=== PATIENT | female | born 1985 | race Caucasian/White ===

== ENCOUNTER 2016-03-27 06:10 | Day surgery (SDC) | payer BC ==
--- NOTE | 2016-03-26 07:45 | P.HPOB ---
History of Present Illness H&P Date: 03/26/16 Chief Complaint: Menorrhagia. This patient is a pleasant 30 yr female with long standing menorrhagia who is requesting trial of endometrial ablation for treatment. Pelvic ultrasound was unremarkable and patient is done having children ( has had a vasectomy). She does not desire hormonal treatment at this time and requests Novasure endometrial ablation. Review of Systems Constitutional: Denies chills, Denies fever Ears, nose, mouth and throat: Denies headache, Denies sore throat Cardiovascular: Denies chest pain, Denies shortness of breath Respiratory: Denies cough Gastrointestinal: Denies abdominal pain, Denies diarrhea, Denies nausea, Denies vomiting Genitourinary: Reports as per HPI Menstruation: Reports period heavy Musculoskeletal: Denies myalgias Integumentary: Denies pruritus, Denies rash Neurological: Denies numbness, Denies weakness Psychiatric: Denies anxiety, Denies depression Endocrine: Denies fatigue, Denies weight change Past Medical History Past Medical History: Asthma Additional Past Medical History / Comment(s): Patient has a history of kidney calculus History of Any Multi-Drug Resistant Organisms: None Reported Past Surgical History: No Surgical Hx Reported Additional Past Surgical History / Comment(s): Patient had a uterine inversion with her first that required anesthesia for resolution. Past Anesthesia/Blood Transfusion Reactions: No Reported Reaction Past Psychological History: No Psychological Hx Reported Smoking Status: Never smoker Past Alcohol Use History: None Reported Past Drug Use History: None Reported - Past Family History Father Family Medical History: Diabetes Mellitus Medications and Allergies Allergies Allergy/AdvReac Type Severity Reaction Status Date / Time No Known Allergies Allergy Verified 04/18/15 05:55 Exam - OBG Physical Exam Abdomen: bowel sounds normal, no diffuse tenderness, no bruit present, no guarding noted, no hepatomegaly, no splenomegaly, no mass Vulva: both: normal Vagina: normal moisture, no discharge Cervix: no lesion, no discharge Uterus: normal size Adnexa: both: normal Results Transvaginal ultrasound on 03/07 demonstrated a normal size retroverted uterus. Assessment and Plan (1) Menorrhagia Narrative/Plan: This is a pleasant 30 yr female with long standing menorrhagia who requests trial of endometrial ablation for treatment. Plan is hysteroscopy, D&C , and Novasrue endometrial ablation. I have discussed this surgery with Smita in detail and the risks: infection, bleeding, possible uterine perforation and/or thermal injury. All of the patients questions were answered and a written consent obtained. Status: Chronic
[2016-03-26 08:49] VITALS: BMI 28.8
[~2016-03-27 06:10] MED LIST: DEXAMETHASONE SOD PHOSPHATE 10 MG/ML 1 ML VIAL IV ONE; HYDROmorphone 1 MG/ML 1 ML SYRINGE IVP PRN; LACTATED RINGERS 1,000 ML IV SCH; LIDOCAINE 1% 20 ML VIAL (10MG/ML) FOR IV START INTRADERMA PRN; MIDAZOLAM 2 MG/2 ML VIAL IV PRN; ONDANSETRON 4 MG/2 ML VIAL IVP ONE; Pre Op ABX Message 1 EACH MISC MISCELLANE ONE; SCOPOLAMINE 1.5MG/72HR PATCH TRANSDERM ONE
[2016-03-27] MEDS ORDERED: MIDAZOLAM 2 MG/2 ML VIAL ONE (07:13)
[2016-03-27] MEDS ORDERED: KETOROLAC 30 MG/ML 1 ML VIAL ONE (07:13)
[2016-03-27] MEDS ORDERED: fentaNYL (PF) 50 MCG/ML 2 ML AMP ONE (07:13)
[2016-03-27] MEDS ORDERED: LIDOCAINE 1% INJ 10MG/ML (20 ML MDV) ONE (07:13)
[2016-03-27] MEDS ORDERED: PROPOFOL 10 MG/ML 20 ML VIAL IV ONE (07:13)
--- NOTE | 2016-03-27 07:49 | P.OP ---
Date of Procedure: 03/27/16 Preoperative Diagnosis: Menorrhagia Postoperative Diagnosis: Same Procedure(s) Performed: #1: Hysteroscopy. #2: Dilation and curettage. #3: NovaSure endometrial ablation. Anesthesia: MAC Surgeon: Jay Contreras Estimated Blood Loss (ml): 10 Urine output (ml): 10 Pathology: other (Endometrial curettings) Condition: stable Disposition: PACU Indications for Procedure: Please see dictated H&P for intimate details of this patient's admission. Brief summary this is a pleasant 30-year-old 4 para 4 female with refractory menorrhagia requesting NovaSure endometrial ablation for treatment. Patient does understand the surgery and risks including risks of infection, bleeding, possible uterine perforation, and/or thermal injury. All the patient' s questions are answered and a written consent is obtained. Operative Findings: This patient had a normal-appearing endometrial cavity Description of Procedure: This patient is taken to the operating room where she is laid in the supine position. She subsequently undergoes general mask anesthesia for an adequate level of anesthesia. With this done she's placed in the dorsal lithotomy position. She has a vaginal perineal prep and drape. Examination under anesthesia shows a retroverted uterus of normal size. I drain the bladder at this time for 10 mL of clear urine. A weighted speculum was placed in the posterior vagina and the anterior lip of the cervix is grasped with an Allis clamp. Uterus is then sounded to approximately 8 cm retroverted. Gentle dilation is then done to allow the hysteroscope into the uterine cavity. Hysteroscopy is performed with saline solution. Uterine cavity is measured to be 5.5 cm in length. Uterine cavity appears normal. The hysteroscope was then removed. I dilate the cervix more to allow the curette easily and the uterine cavity and a gentle but vigorous curettage of all 4 quadrants is done. With this done cervix is dilated slightly more to allow the NovaSure device. NovaSure device is opened and appears to be intact. It is seated into the uterine cavity and opens up to a width of 3.4 cm. At this time, it passes the cavity integrity test. NovaSure device is then enabled and fires at 103 W for 65 seconds. The NovaSure device is then removed. Again it appears to be intact. I then take the hysteroscope in inspect the uterine cavity and appears to be completely ablated up to the endocervix. With this done the procedure is then terminated. The Allis clamp and weighted speculum was removed. All counts are correct 3. There are no complications. Patient is awakened from anesthesia and taken to the recovery room in satisfactory condition.
[2016-03-27 07:54] VITALS: TEMP 97
[2016-03-27 08:01] VITALS: RESP 18
[2016-03-27 08:57] VITALS: BP 112/68; PULSE 61
== END 2016-03-27 09:12 | disposition home or self-care (01) ==
LOC: OR 06:10
PROVIDERS: ATTEND Obstetrics & Gynecology
DX: N92.0 Excessive and frequent menstruation with regular cycle (principal); N85.4 Malposition of uterus; Z79.891 Long term (current) use of opiate analgesic
CPT/HCPCS: 81025; 88305; 58563; J2250; J1100; J2405; J2001; J3010; J1885; J2704

== ENCOUNTER → 2018-07-07 | Outpatient (CLI) | payer MEDICAID ==
[2018-07-07 10:44] LABS: Basophils % (A) 1 %; Eosinophils # (A) 0.1 k/uL (0-0.7); Eosinophils % (A) 2 %; HCT 36.7 % (34.0-46.0); HGB 12.3 gm/dL (11.4-16.0); Lymphocytes % (A) 28 %; MCHC 33.4 g/dL (31.0-37.0); MCV 89.7 fL (80.0-100.0); Mean Platelet Volume 7.5; Monocytes # (A) 0.3 k/uL (0-1.0); Monocytes % (A) 7 %; Neutrophils # (A) 2.1 k/uL (1.3-7.7); Neutrophils % (A) 59 %; Platelet Count 221 k/uL (150-450); RBC 4.09 m/uL (3.80-5.40); RDW 13.8 % (11.5-15.5); WBC 3.5 k/uL (3.8-10.6)
[2018-07-07 16:38] LABS: ALT 25 U/L (8-44); AST 27 U/L (13-35); Albumin/Globulin Ratio 2.05 (1.60-3.17); Alkaline Phosphatase 95 U/L (41-126); Calcium 8.9 mg/dL (8.7-10.3); Carbon Dioxide 24.7 mmol/L (21.6-31.8); Chloride 107 mmol/L (96-109); Cholesterol 155 mg/dL (0-200); Globulin 2.1 g/dL (1.6-3.3); Glucose 89 mg/dL (70-110); Potassium 4.1 mmol/L (3.5-5.5); Sodium 141 mmol/L (135-145); Total Bilirubin 0.2 mg/dL (0.2-1.2); Total Protein 6.4 g/dL (6.2-8.2); Triglycerides <50.0 mg/dL (0.0-149.0); VLDL Calculation 9.98 mg/dL (5.00-40.00)
[2018-07-07 17:00] LABS: Iron Saturation 5.97 (12.00-45.00)
== END | disposition home or self-care (01) ==
LOC: LABWHC1 09:00
PROVIDERS: ATTEND Family Medicine
DX: Z00.00 Encounter for general adult medical examination without abnormal findings (principal); E55.9 Vitamin D deficiency, unspecified; D50.9 Iron deficiency anemia, unspecified
CPT/HCPCS: 36415; 80053; 80061; 82306; 82607; 82728; 83540; 83550; 84443; 85025

== ENCOUNTER → 2018-08-26 | Outpatient (CLI) | payer MEDICAID ==
[2018-08-26 10:41] LABS: Basophils % (A) 0 %; Eosinophils # (A) 0.1 k/uL (0-0.7); Eosinophils % (A) 2 %; HCT 38.2 % (34.0-46.0); HGB 12.3 gm/dL (11.4-16.0); Lymphocytes % (A) 32 %; MCH 29.9 pg (25.0-35.0); MCHC 32.2 g/dL (31.0-37.0); Mean Platelet Volume 6.9; Monocytes # (A) 0.4 k/uL (0-1.0); Monocytes % (A) 7 %; Neutrophils # (A) 3.6 k/uL (1.3-7.7); Neutrophils % (A) 57 %; Platelet Count 254 k/uL (150-450); RBC 4.11 m/uL (3.80-5.40); RDW 13.4 % (11.5-15.5); WBC 6.3 k/uL (3.8-10.6)
[2018-08-26 16:53] LABS: Iron Saturation 28.92 (12.00-45.00)
== END | disposition home or self-care (01) ==
LOC: LABWHC1 09:55
PROVIDERS: ATTEND Family Medicine
DX: E61.1 Iron deficiency (principal)
CPT/HCPCS: 36415; 82728; 83540; 83550; 85025